=== PATIENT | male | born 1985 | race Caucasian/White ===

== ENCOUNTER 2016-07-07 16:32 | Emergency (ER) | payer OTHER ==
[2016-07-07 19:16] VITALS: BP 122/66
--- NOTE | 2016-07-07 20:01 | RAD ---
HISTORY: Trauma to the fifth digit of the right hand COMPARISONS: None VIEWS: 3, Frontal, lateral, and oblique views of the fifth digit of the right hand FINDINGS: BONE DENSITY: Normal. BONES: There is no displaced fracture. JOINTS: There is no arthropathy. ALIGNMENT: There is no dislocation. SOFT TISSUES: Unremarkable. OTHER FINDINGS: None. IMPRESSION: NO ACUTE OSSEOUS INJURY. IF SYMPTOMS PERSIST, RECOMMEND REPEAT IMAGING.
--- NOTE | 2016-07-07 20:42 | UC ---
Hand/Wrist HPI - HPI Summary HPI Summary: RIGHT FIFTH FINGER INJURY BENT BACKWARDS WHILE PICKING UP TABLE 07/05/16. - History Of Current Complaint Chief Complaint: UCUpperExtremity Stated Complaint: FINGER INJURY Time Seen by Provider: 07/07/16 19:21 Hx Obtained From: Patient Onset/Duration: Sudden Onset, Lasting Days, Still Present Severity Initially: Moderate Severity Currently: Moderate Pain Intensity: 0 Pain Scale Used: Adult Non Verbal Character Of Pain: Spasmodic, Stiffness Aggravating Factor(s): Movement, Flexion, Extension Alleviating: Nothing Associated Signs And Symptoms: Positive: Negative Related History: Dominant Hand Right - Allergies/Home Medications Allergies/Adverse Reactions: Allergies Allergy/AdvReac Type Severity Reaction Status Date / Time No Known Allergies Allergy Verified 07/07/16 19:11 PMH/Surg Hx/FS Hx/Imm Hx Previously Healthy: Yes Endocrine History Of: Denies: Diabetes, Thyroid Disease Cardiovascular History Of: Denies: Cardiac Disorders, Hypertension Respiratory History Of: Denies: COPD, Asthma GI/ History Of: Denies: Ulcer - Surgical History Surgical History: Yes Surgery Procedure, Year, and Place: Hernia repair bilateral at approx 8 years old - Family History Known Family History: Positive: None - Social History Occupation: Employed Full-time Lives: With Family Alcohol Use: Occasionally Substance Use Type: None Smoking Status (MU): Heavy Every Day Tobacco Smoker Type: Cigarettes Amount Used/How Often: 1 ppd Length of Time of Smoking/Using Tobacco: 10+ years Cessation Counseling: Patient Advised to Stop Review of Systems Constitutional: Negative Skin: Negative Eyes: Negative ENT: Negative Respiratory: Negative Cardiovascular: Negative Gastrointestinal: Negative Genitourinary: Negative Motor: Negative Neurovascular: Negative Musculoskeletal: Arthralgia, Myalgia Neurological: Negative Psychological: Negative All Other Systems Reviewed And Are Negative: Yes Physical Exam Triage Information Reviewed: Yes Appearance: Well-Appearing, No Pain Distress, Well-Nourished Vital Signs: Initial Vital Signs Temp 98.6 F 07/07/16 19:13 Pulse 70 07/07/16 19:13 Resp 16 07/07/16 19:13 BP 122/66 07/07/16 19:13 Pulse Ox 98 07/07/16 19:13 Vital Signs Reviewed: Yes Eye Exam: Normal Eyes: Positive: Conjunctiva Clear ENT Exam: Normal ENT: Positive: Normal ENT inspection, Hearing grossly normal, Pharynx normal, TMs normal Dental Exam: Normal Neck exam: Normal Neck: Positive: Supple, Nontender, No Lymphadenopathy Respiratory Exam: Normal Respiratory: Positive: Chest non-tender, Lungs clear, Normal breath sounds, No respiratory distress Cardiovascular Exam: Normal Cardiovascular: Positive: RRR, No Murmur, Pulses Normal Abdominal Exam: Normal Abdomen Description: Positive: Nontender, No Organomegaly Musculoskeletal: Positive: No Edema, Strength Limited @ - RIGHT FIFTH FINGER, ROM Limited @ - RIGHT FIFTH FINGER Neurological Exam: Normal Psychological Exam: Normal Skin Exam: Normal Hand/Wrist Course/Dx - Differential Dx/Diagnosis Differential Diagnosis/HQI/PQRI: Fracture, Sprain, Strain Provider Diagnoses: RIGHT FIFTH FINGER SPRAIN Discharge - Discharge Plan Condition: Stable Disposition: HOME Patient Education Materials: Finger Sprain (ED) Referrals: Shania Izquierdo MD [Primary Care Provider] - Lizzette Madera MD [Medical Doctor] -
== END 2016-07-07 20:25 | disposition home or self-care (01) ==
LOC: UCEAST 16:32
DX: S63.616A Unspecified sprain of right little finger, initial encounter (principal); X50.0XXA Overexertion from strenuous movement or load, initial encounter; Y93.9 Activity, unspecified; Y92.9 Unspecified place or not applicable; F17.210 Nicotine dependence, cigarettes, uncomplicated
CPT/HCPCS: 73140; 99213; G0463

== ENCOUNTER 2017-03-27 09:14 | Emergency (ER) | payer OTHER ==
[2017-03-27 09:24] VITALS: BP 122/78
--- NOTE | 2017-03-27 10:53 | UC ---
Nausea/Vomiting/Diarrhea HPI - HPI Summary HPI Summary: 31 y/o male presents to the Urgent care c/o nausea , diarrhea and chills since 03/25/2017. Pt reports He had multiple episodes of Diarrhea, but has resolved by now. However he feels very week with a mild headache. Pt denies fever, SOB, abdominal pain, chest pain, dizziness, N/V, recent travelled or eating outside before symptoms started. Pt requests a note for work. - History of Current Complaint Chief Complaint: UCGeneralIllness Stated Complaint: NAUSEA CHILLS Time Seen by Provider: 03/27/17 10:34 Hx Obtained From: Patient Onset/Duration: Gradual Onset, Lasting Days - 3 days, Resolved Timing: Intermittent Episodes Lasting: - seconds Severity Initially: Moderate Severity Currently: Mild Pain Intensity: 0 Pain Scale Used: 0-10 Numeric Location: Diffuse Character: Colicy Aggravating Factor(s): Nothing Alleviating Factor(s): Spontaneous Resolution Nausea/Vomiting Presence: None Diarrhea Presence: Yes - but resolve by now Diarrhea Duration: 2-3 days Diarrhea Characteristics: Watery, Malodorous - Risk Factors Influenza Risk Factors: Negative Surgical Obstruction Risk Factor(s): Negative - Allergies/Home Medications Allergies/Adverse Reactions: Allergies Allergy/AdvReac Type Severity Reaction Status Date / Time No Known Allergies Allergy Verified 03/27/17 09:19 PMH/Surg Hx/FS Hx/Imm Hx Previously Healthy: Yes - Pt denies PMHX - Surgical History Surgical History: Yes Surgery Procedure, Year, and Place: Hernia repair bilateral at approx 8 years old - Family History Known Family History: Positive: Hypertension, Diabetes - Social History Occupation: Employed Full-time Lives: With Family Alcohol Use: Occasionally Substance Use Type: None Smoking Status (MU): Heavy Every Day Tobacco Smoker Type: Cigarettes Amount Used/How Often: 1 ppd Length of Time of Smoking/Using Tobacco: 10+ years Review of Systems Constitutional: Fatigue Skin: Negative Eyes: Negative ENT: Negative Respiratory: Negative Cardiovascular: Negative Gastrointestinal: Diarrhea Genitourinary: Negative Motor: Negative Neurovascular: Negative Musculoskeletal: Negative Neurological: Headache Is Patient Immunocompromised?: No All Other Systems Reviewed And Are Negative: Yes Physical Exam Triage Information Reviewed: Yes Vital Signs: Initial Vital Signs Temp 99 F 03/27/17 09:22 Pulse 83 03/27/17 09:22 Resp 18 03/27/17 09:22 BP 122/78 12/15/17 09:22 Pulse Ox 100 03/27/17 09:22 - Additional Comments Vital Signs Reviewed: Yes General:Patient is a well developed and nourished male who is sitting comfortable in the examining table. Patient is not in any acute respiratory distress. Eyes: Positive: Conjunctiva Clear - PERRLA, EOMI, fundi grossly normal ENT: Positive: Normal ENT inspection, Hearing grossly normal, Pharynx normal, TMs normal Neck: Positive: Supple, Nontender, No Lymphadenopathy Respiratory: Positive: Chest non-tender, Lungs clear, Normal breath sounds, No respiratory distress Cardiovascular: Positive: RRR,S1 and S2 present, No Murmur, Pulses Normal, Brisk Capillary Refill Abdomen Description: Positive: Nontender, Other: - Abd: Flat with no distention. No surface trauma, scars, incisions. hyperactive bowel sounds present in all four quadrants. No tenderness, guarding, rigidity to palpation. No masses palpated, no pulsation in epigastric area. No organomegaly. Negative [place] signs. No periumbilical tenderness. No rebound in the lower quadrants. NT over [place]neys point. Good femoral pulses bilaterally. No hernia noted. No CVAT bilaterally Musculoskeletal: Positive: Strength Intact, ROM Intact, No Edema,FROM in all major joints, no edema, no cyanosis or clubbing. Neuro: Alert and oriented x 3. No acute neurological deficits. Speech is normal. Psycological: WNL Skin: Dry and warm Naus/Vom/Diarrhea Course/Dx - Course Course Of Treatment: 31 y/o male presents to the Urgent care c/o nausea , diarrhea and chills since 03/25/2017. Pt reports He had multiple episodes of Diarrhea, but has resolved by now. However he feels very week with a mild headache. Pt denies fever, SOB, abdominal pain, chest pain, dizziness, N/V, recent travelled or eating outside before symptoms started. Pt requests a note for work.Hx obatined. PE : WNL Pt with possibly a Viral gastroenteririts which is resolving by now. Also B/L exteranl ear canal with cerument impaction. Pt offered ear irrigation and he declined, he prefers Rx. Debrox Rx and excuse for work given. advised to increase fluid intake, eat soft meals, rest. However if symptoms worsen and abdominal pain develops to go Immediately to the ER for further management. Pt explained D/C instructions. Pt understood and agreed w/ plan of care. Pt left the clinic ambulating, A&OX3 - Differential Dx/Diagnosis Differential Diagnoses - Male: Appendicitis, Gerd, Gastroenteritis (Viral), Gastroenteritis (Bacterial), Diarrhea, Colitis, Gastritis Provider Diagnoses: 1- viral gastroenteritis. 2-B/l external ear canal with cerumen impaction Condition At Discharge: Stable Discharge - Discharge Plan Condition: Stable Disposition: HOME Prescriptions: Carbamide Peroxide 6.5% OTIC* [DEBROX 6.5% Otic*] 5 drop BOTH EARS BID #1 bottle Patient Education Materials: Cerumen Impaction (ED), Gastroenteritis (ED) Forms: *Work Release Referrals: Perry Carrero, [facility]ER [Primary Care Provider] - 3 Days Additional Instructions: 1- Please increase fluid intake with Gatorade or Pedialyte OTC. eat soft meals and rest. 2- Use the Debrox on both external ear canals to soften the cerumen. 3- If you develops fever or abdominal pain w/ recurrent episodes of diarrhea please go the ER, otherwise f/u with your PCP if diarrhea not resolving in 2-3 days
== END 2017-03-27 11:00 | disposition home or self-care (01) ==
LOC: UCEAST 09:14
DX: A08.4 Viral intestinal infection, unspecified (principal); H61.23 Impacted cerumen, bilateral; Z72.89 Other problems related to lifestyle; Z72.0 Tobacco use
CPT/HCPCS: 99212; G0463

== ENCOUNTER 2017-06-25 13:11 | Emergency (ER) | payer OTHER ==
[2017-06-25 13:29] VITALS: BP 140/77
--- NOTE | 2017-06-25 13:57 | UC ---
General HPI - HPI Summary HPI Summary: 31 yo WM c/o B/L cerumen impaction x 2-3 weeks, his friend have been telling him he cannot hear as well as he normally does. He is opposed to "sticking anything in there to get it out". Denies pain, f/c/dizziness or URI sx - History of Current Complaint Chief Complaint: UCEar Stated Complaint: EARS PLUGGED Time Seen by Provider: 06/25/17 13:45 Hx Obtained From: Patient Onset/Duration: Lasting Days, Lasting Weeks, Still Present Onset Severity: Moderate Current Severity: Moderate Pain Intensity: 0 - Allergy/Home Medications Allergies/Adverse Reactions: Allergies Allergy/AdvReac Type Severity Reaction Status Date / Time No Known Allergies Allergy Verified 06/25/17 13:21 PMH/Surg Hx/FS Hx/Imm Hx Previously Healthy: Yes - Surgical History Surgical History: Yes Surgery Procedure, Year, and Place: Hernia repair bilateral at approx 8 years old - Family History Known Family History: Positive: None, Hypertension, Diabetes - Social History Alcohol Use: Occasionally Substance Use Type: None Smoking Status (MU): Heavy Every Day Tobacco Smoker Type: Cigarettes Amount Used/How Often: 1 ppd Length of Time of Smoking/Using Tobacco: 10+ years Review of Systems Constitutional: Negative Skin: Negative Eyes: Negative ENT: Other - decreased hearing-mild due to ear wax Respiratory: Negative Cardiovascular: Negative Gastrointestinal: Negative Genitourinary: Negative Motor: Negative Neurovascular: Negative Musculoskeletal: Negative Neurological: Negative Psychological: Negative All Other Systems Reviewed And Are Negative: Yes Physical Exam Triage Information Reviewed: Yes Appearance: Well-Appearing Vital Signs: Initial Vital Signs Temp 37.0 C 06/25/17 13:22 Pulse 107 06/25/17 13:22 Resp 18 06/25/17 13:22 BP 140/77 06/25/17 13:22 Pulse Ox 98 06/25/17 13:22 Vital Signs Reviewed: Yes Eye Exam: Normal ENT: Positive: Other - B/L cerumen impaction Dental Exam: Normal Neck exam: Normal Neck: Positive: 1 Respiratory Exam: Normal Cardiovascular Exam: Normal Abdominal Exam: Normal Musculoskeletal Exam: Normal Neurological Exam: Normal Psychological Exam: Normal Skin Exam: Normal Course/Dx - Course Course Of Treatment: After soaking with peroxide and saline irrgation, B/L ext ear canal well visualized and hearing improved - Differential Dx - Multi-Symptom Provider Diagnoses: Cerumen impaction Discharge - Discharge Plan Condition: Stable Disposition: HOME Patient Education Materials: Cerumen Impaction (ED) Referrals: No Primary Care Phys,NOPCP [Primary Care Provider] - Additional Instructions: clean your ears periodically with ear curette between irrigations
== END 2017-06-25 14:49 | disposition home or self-care (01) ==
LOC: UCEAST 13:11
DX: H61.23 Impacted cerumen, bilateral (principal); F17.210 Nicotine dependence, cigarettes, uncomplicated
CPT/HCPCS: 99213; G0463

== ENCOUNTER → 2017-07-27 12:30 | Emergency (ER) | payer OTHER ==
--- NOTE | 2017-07-27 12:54 | UC ---
Ear Complaint HPI - HPI Summary HPI Summary: 31 y/o male presents to the urgent care c/o left ear pain w/ pressure for the past 2 days. Pain is 5/10 associated w/ mild NAZARIO. Pt has been taking 2 tabs PO of Ibuprofen to alleviate symptoms. Pt denies fever, decrease hearing, dizziness, SOB, chest pain, abdominal pain, N/V/D. - History of Current Complaint Stated Complaint: EAR PAIN Time Seen by Provider: 07/27/17 12:51 Hx Obtained From: Patient Onset/Duration: Gradual Onset, Lasting Days - 2 days, Still Present, Worse Since - today Severity Initially: Mild Severity Currently: Moderate Pain Intensity: 5 Pain Scale Used: 0-10 Numeric Aggravating Factors: Other - touch Alleviating Factors: OTC Meds Associated Signs/Symptoms: Positive: URI Symptoms - Allergies/Home Medications Allergies/Adverse Reactions: Allergies Allergy/AdvReac Type Severity Reaction Status Date / Time No Known Allergies Allergy Verified 07/27/17 12:51 PMH/Surg Hx/FS Hx/Imm Hx Previously Healthy: Yes - Pt denies PMHX - Surgical History Surgical History: Yes Surgery Procedure, Year, and Place: Hernia repair bilateral at approx 8 years old - Family History Known Family History: Positive: None, Hypertension, Diabetes - Social History Occupation: Employed Full-time Lives: With Family Alcohol Use: Occasionally Substance Use Type: None Smoking Status (MU): Heavy Every Day Tobacco Smoker Type: Cigarettes Amount Used/How Often: 1 ppd Length of Time of Smoking/Using Tobacco: 10+ years Review of Systems Constitutional: Negative Skin: Negative Eyes: Negative ENT: Ear Ache - left ear pain and pressure, Nasal Discharge - mild w/ clear nasal discharge Respiratory: Negative Cardiovascular: Negative Gastrointestinal: Negative Genitourinary: Negative Motor: Negative Neurovascular: Negative Musculoskeletal: Negative Neurological: Headache Psychological: Negative Is Patient Immunocompromised?: No All Other Systems Reviewed And Are Negative: Yes Physical Exam - Summary Physical Exam Summary: Vital signs: reviewed General: well developed, well nourished male sitting in the examining table w/o any apparent distress Skin: [place], warm and dry, HEENT: -Head: atraumatic, non tender; no scalp dermatitis. -Eyes: sclera and conjunctiva clear, PERRLA, EOMI -Ears: no pre- or postauricular lymphadenopathy or erythema; LF external ear canal with erythema and mild yellowish ear discharge, pinna tenderness on palpation, Rt TM WNL, RT external ear canal clear and RTTM WNL. TMs normal w/ out bulging or retraction. Good light reflex. No fluid level, vesicles, or bullae. No perforation. -Nose/Face: erythematous and edematous nasal mucosa with clear rhinorrhea, no frontal or maxillary sinus tender to palpation. -Mouth/Throat: Mucous membrane moist, posterior pharynx clear, no erythema or exudates. Neck: supple, FROM, nontender, no lymphadenopathy, no meningismus. Chest: Clear to auscultation, normal breath sounds Abd: soft, Bowel sounds active, Nontender. Back: no spinal or CVAT Neuro: A&O x4, GCS 15, no focal neuro deficits, normal behavior for age. Triage Information Reviewed: Yes Ear Complaint Course/Dx - Course Course Of Treatment: 31 y/o male presents to the urgent care c/o left ear pain w / pressure for the past 2 days. Pain is 5/10 associated w/ mild NAZARIO. Pt has been taking 2 tabs PO of Ibuprofen to alleviate symptoms. Pt denies fever, dizziness, SOB, chest pain, abdominal pain, N/V/D.Hx obtained. Pt w/ Lf otitis externa on examination. Pt Rx Cortisporin otic drops. Advised to continue taking ibuprofen PO OTC for pain. If symptoms do not improve or worsen to return to the urgent care or f/u with PCP for further management. Pt understood and agreed with D/C instructions. - Differential Dx/Diagnosis Differential Diagnosis/HQI/PQRI: Barotrauma, Cerumen Impaction, Otitis Externa, Otitis Media, Perforated TM Provider Diagnoses: 1- Acute left otitis externa. 2- Otalgia Discharge - Sign-Out/Discharge Documenting (check all that apply): Discharge - Discharge Plan Condition: Stable Disposition: HOME Prescriptions: Neomyc/Polym/HC 1% OTIC SUSP* [Cortisporin Otic Susp 1%*] 4 drop LEFT EAR QID # 1 btl Patient Education Materials: Otitis Externa (ED) Forms: *Work Release Referrals: [facility] [Outside] - If Needed Additional Instructions: 1-Please apply otic antibiotic on your LF ear as directed. 2-Continue taking ibuprofen PO after meals for pain. 3-If symptoms do not improve or worsen please f/u with your PCP or return to the urgent care for further evaluation and treatment. - Billing Disposition and Condition Condition: STABLE Disposition: HOME
[2017-07-27 12:58] VITALS: BP 135/86
== END | disposition home or self-care (01) ==
LOC: UCEAST 12:30
DX: H60.502 Unspecified acute noninfective otitis externa, left ear (principal); H92.02 Otalgia, left ear; F17.210 Nicotine dependence, cigarettes, uncomplicated
CPT/HCPCS: 99212; G0463

== ENCOUNTER 2018-07-16 07:31 | Emergency (ER) | payer OTHER ==
--- OUTSIDE RECORDS SUMMARY | 2018-07-16 07:38 | XMS REPORT | Continuity of Care Document ---
:1985 External Reference #:[id number] Nicole Care Team Providers Name Role Phone Mick Winter MD Primary Care Physician Unavailable Payers Date Identification Numbers Payment Provider Subscriber Policy Number: [id number] Javier Mendez Group Name: [id number] [address] PayID: [id number] [place] [address] Advance Directives Description No Information Available Problems Date Description Provider Status Onset: 06/08/2015 Anxiety Tyshawn Izquierdo M.D. 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 Cigarette Use Pack Years - 13 ETOH Use 08/18/2017 Occasionally consumes alcohol Recreational Drug Use MJ Tobacco Use Start: Unknown Patient is a current Started age 18; smoker, smokes every smokes 1/2-1ppd day Smoking Status Reviewed: 07/14/18 Patient is a current Started age 18; smoker, smokes every smokes 1/2-1ppd day Exercise Type/Frequency 4 children, hiking etc Allergies, Adverse Reactions, Alerts Description No Known Drug Allergies Medications Medication Date Status Form Strength Qnty SIG Indications Ordering Provider Nicorette Active Gum 4mg 220unit 1 piece F17.210 Diane 019 s of gum Varn, N.P. every 2 - 4 hours. Not more than 24 per day Ranitidine HCL Active Tablets 150mg 60tabs take one R10.13 Diane 019 tablet by Ne, N.P. mouth twice a day Procto-Med HC Active Cream 2.5% 30gm by way of Mick Aguilar rectum Jordan Winter, every day M.DJonathan,FACP as needed Clotrimazole Active Cream 1% 30gm topical Mick Aguilar every day Jordan Winter, as needed M.D.,FACP Multi Complete Active Capsules daily Unknown 000 Ginseng Active Capsules 50mg 1 by Unknown 000 mouth every day Ibuprofen Active Tablets 200mg as needed Unknown 000 Vitamin D3 Active Chewtabs 1000Unit 1 by Unknown Adult Gummies 000 mouth every day Sertraline HCL Hx Tablets 50mg 30tabs 1 Tab F32.8 Tyshawn 016 - Oral [place], Daily MDonna 016 Immunizations Description No Information Available Vital Signs Date Vital Result Comment 07/14/2018 3:19pm Height 69 inches 5'9" Weight 206.50 lb Heart Rate 102 /min BP Systolic Sitting 125 mmHg BP Diastolic Sitting 80 mmHg Body Temperature 98.5 F O2 % BldC Oximetry 96 % BMI (Body Mass Index) 30.5 kg/m2 06/24/2018 10:39am Height 69 inches 5'9" Weight 212.00 lb Heart Rate 93 /min BP Systolic 136 mmHg BP Diastolic 76 mmHg Body Temperature 98.3 F O2 % BldC Oximetry 97 % BMI (Body Mass Index) 31.3 kg/m2 08/21/2017 2:15pm Heart Rate 90 /min BP Systolic Sitting 138 mmHg BP Diastolic Sitting 80 mmHg Respiratory Rate 18 /min Body Temperature 99.0 F 08/18/2017 3:51pm Height 69 inches 5'9" Weight 200.00 lb Heart Rate 95 /min BP Systolic Sitting 104 mmHg BP Diastolic Sitting 70 mmHg Body Temperature 98.0 F O2 % BldC Oximetry 96 % BMI (Body Mass Index) 29.5 kg/m2 12/10/2016 4:07pm Weight 243.00 lb Heart Rate 102 /min BP Systolic Sitting 116 mmHg BP Diastolic Sitting 82 mmHg O2 % BldC Oximetry 96 % 11/23/2015 7:56am Weight 224.75 lb Heart Rate 87 /min BP Systolic Sitting 125 mmHg BP Diastolic Sitting 88 mmHg Body Temperature 98.5 F O2 % BldC Oximetry 97 % 08/17/2015 8:40am Height 69 inches 5'9" Weight 229.00 lb Heart Rate 76 /min BP Systolic Sitting 122 mmHg BP Diastolic Sitting 82 mmHg Body Temperature 97.6 F O2 % BldC Oximetry 98 % BMI (Body Mass Index) 33.8 kg/m2 07/13/2015 7:57am Height 69 inches 5'9" Weight 233.75 lb Heart Rate 102 /min BP Systolic Sitting 124 mmHg BP Diastolic Sitting 84 mmHg Body Temperature 98.7 F O2 % BldC Oximetry 98 % BMI (Body Mass Index) 34.5 kg/m2 06/13/2015 10:36am Height 69 inches 5'9" Weight 239.00 lb Heart Rate 88 /min BP Systolic Sitting 128 mmHg BP Diastolic Sitting 80 mmHg Respiratory Rate 14 /min Body Temperature 15.0 F O2 % BldC Oximetry 98 % BMI (Body Mass Index) 35.3 kg/m2 06/08/2015 11:10am Height 69 inches 5'9" Weight 240.75 lb Heart Rate 95 /min BP Systolic Sitting 140 mmHg BP Diastolic Sitting 93 mmHg Body Temperature 98.2 F O2 % BldC Oximetry 96 % BMI (Body Mass Index) 35.5 kg/m2 Results Test Date Facility Test Result H/L Range Note CBC Auto Diff 06/24/2018 [facility] White Blood 8.3 10^3/uL N 3.5-10.[address] [place] [address] [phone] Red Blood Count 5.13 10^6/uL N 4.18-5.48 Hemoglobin 15.5 g/dL N 14.0-18.0 Hematocrit 45 % N 36-46 Mean Corpuscular Volume 88 fL N 80-94 Mean Corpuscular Hemoglobin 30 pg N 27-31 Mean Corpuscular HGB Conc 34 g/dL N 31-36 Red Cell Distribution Width 13 % N 10.5-15 Platelet Count 184 10^3/uL N 150-450 Mean Platelet Volume 8.4 fL N 7.4-10.4 Abs Neutrophils 6.3 10^3/uL N 1.5-7.7 Abs Lymphocytes 1.3 10^3/uL N 1.0-4.8 Abs Monocytes 0.5 10^3/uL N 0-0.8 Abs Eosinophils 0.1 10^3/uL N 0-0.6 Abs Basophils 0.1 10^3/uL N 0-0.2 Abs Nucleated RBC 0 10^3/uL Granulocyte % 76.3 % Lymphocyte % 15.7 % Monocyte % 6.6 % Eosinophil % 0.7 % Basophil % 0.7 % Nucleated Red Blood Cells % 0 Comp Metabolic Panel 06/24/2018 [facility] Sodium 140 mmol/L N 135-[address] [place] [address] [phone] Potassium 3.9 mmol/L N 3.5-5.0 Chloride 106 mmol/L N 101-111 Co2 Carbon Dioxide 25 mmol/L N 22-32 Anion Gap 9 mmol/L N 2-11 Glucose 109 mg/dL High 70-100 Blood Urea Nitrogen 20 mg/dL N 6-24 Creatinine 0.90 mg/dL N 0.67-1.17 BUN/Creatinine Ratio 22.2 High 8-20 Calcium 9.2 mg/dL N 8.6-10.3 Total Protein 6.3 g/dL Low 6.4-8.9 Albumin 4.5 g/dL N 3.2-5.2 Globulin 1.8 g/dL Low 2-4 Albumin/Globulin Ratio 2.5 N 1-3 Total Bilirubin 0.40 mg/dL N 0.2-1.0 Alkaline Phosphatase 56 U/L N 34-104 Alt 14 U/L N 7-52 Ast 11 U/L Low 13-39 Egfr Non- 96.6 >60 Egfr 116.9 >60 1 Laboratory test 06/24/2018 [facility] TSH (Thyroid 0.53 mcIU/mL N 0.34-5.[address] Stim Horm) [place] [address] [phone] CBC Auto Diff 08/18/2017 [facility] White Blood 7.4 10^3/uL N 3.5-10.[address] [place] [address] [phone] Red Blood Count 5.35 10^6/uL N 4.0-5.4 Hemoglobin 16.2 g/dL N 14.0-18.0 Hematocrit 47 % N 42-52 Mean Corpuscular Volume 87 fL N 80-94 Mean Corpuscular Hemoglobin 30 pg N 27-31 Mean Corpuscular HGB Conc 35 g/dL N 31-36 Red Cell Distribution Width 13 % N 10.5-15 Platelet Count 220 10^3/uL N 150-450 Mean Platelet Volume 8.8 um3 N 7.4-10.4 Abs Neutrophils 4.8 10^3/uL N 1.5-7.7 Abs Lymphocytes 2.0 10^3/uL N 1.0-4.8 Abs Monocytes 0.5 10^3/uL N 0-0.8 Abs Eosinophils 0.1 10^3/uL N 0-0.6 Abs Basophils 0.1 10^3/uL N 0-0.2 Abs Nucleated RBC 0 10^3/uL Granulocyte % 64.1 % N 38-83 Lymphocyte % 26.7 % N 25-47 Monocyte % 7.4 % High 0-7 Eosinophil % 1.0 % N 0-6 Basophil % 0.8 % N 0-2 Nucleated Red Blood Cells % 0 Laboratory test 08/18/2017 [facility] TSH (Thyroid 1.01 mcIU/mL N 0.34-5.[address] Stim Horm) [place] [address] [phone] Comp Metabolic 08/18/2017 [facility] Sodium 139 mmol/L N 139- [address] [place] [address] [phone] Potassium 4.4 mmol/L N 3.5-5.0 Chloride 102 mmol/L N 101-111 Co2 Carbon Dioxide 27 mmol/L N 22-32 Anion Gap 10 mmol/L N 2-11 Glucose 81 mg/dL N 70-100 Blood Urea Nitrogen 16 mg/dL N 6-24 Creatinine 0.95 mg/dL N 0.67-1.17 BUN/Creatinine Ratio 16.8 N 8-20 Calcium 9.4 mg/dL N 8.6-10.3 Total Protein 6.9 g/dL N 6.4-8.9 Albumin 4.9 g/dL N 3.2-5.2 Globulin 2.0 g/dL N 2-4 Albumin/Globulin Ratio 2.5 N 1-3 Total Bilirubin 0.60 mg/dL N 0.2-1.0 Alkaline Phosphatase 50 U/L N 34-104 Alt 13 U/L N 7-52 Ast 11 U/L Low 13-39 Egfr Non- 91.3 >60 Egfr 117.4 >60 2 Lipid Profile 12/13/2016 [facility] Triglycerides 101 mg/dL N 3 (Trig/Chol/HDL) [address] [place] [address] [phone] Cholesterol 163 mg/dL N 4 HDL Cholesterol 46.9 mg/dL N 5 LDL Cholesterol 96 mg/dL N 6 Laboratory test 12/13/2016 [facility] Glucose 101 mg/dL High 70-100 [address] [place] [address] [phone] Laboratory test 07/13/2015 [facility] Hemoglobin A1c 5.2 5-7 finding Laboratory test 06/13/2015 [facility] C Difficile PCR SEE RESULT [address] [place] [address] [phone] Comp Metabolic 06/08/2015 [facility] Sodium 136 mmol/L N 133- [address] [place] [address] [phone] Potassium 4.1 mmol/L N 3.5-5.0 Chloride 102 mmol/L N 101-111 Co2 Carbon Dioxide 28 mmol/L N 22-32 Anion Gap 6 mmol/L N 2-11 Glucose 93 mg/dL N 70-100 Blood Urea Nitrogen 22 mg/dL N 6-24 Creatinine 0.93 mg/dL N 0.67-1.17 BUN/Creatinine Ratio 23.7 High 8-20 Calcium 9.5 mg/dL N 8.6-10.3 Total Protein 6.9 g/dL N 6.4-8.9 Albumin 4.7 g/dL N 3.2-5.2 Globulin 2.2 g/dL N 2-4 Albumin/Globulin Ratio 2.1 N 1-3 Total Bilirubin 0.50 mg/dL N 0.2-1.0 Alkaline Phosphatase 53 U/L N 34-104 Alt 19 U/L N 7-52 Ast 13 U/L N 13-39 Egfr Non- 94.8 N >60 Egfr 121.9 N >60 9 Laboratory test 06/08/2015 [facility] TSH (Thyroid 1.11 ?IU/mL N 0.34-5.[address] Stim Horm) [place] [address] [phone] CBC Auto Diff 06/08/2015 [facility] White Blood 7.3 10^3/uL N 3.5-10.[address] [place] [address] [phone] Red Blood Count 5.44 10^6/uL High 4.0-5.4 Hemoglobin 16.2 g/dL N 14.0-18.0 Hematocrit 47 % N 42-52 Mean Corpuscular Volume 87 fL N 80-94 Mean Corpuscular Hemoglobin 30 pg N 27-31 Mean Corpuscular HGB Conc 34 g/dL N 31-36 Red Cell Distribution Width 13 % N 10.5-15 Platelet Count 190 10^3/uL N 150-450 Mean Platelet Volume 8 um3 N 7.4-10.4 Abs Neutrophils 5.0 10^3/uL N 1.5-7.7 Abs Lymphocytes 1.6 10^3/uL N 1.0-4.8 Abs Monocytes 0.5 10^3/uL N 0-0.8 Abs Eosinophils 0.1 10^3/uL N 0-0.6 Abs Basophils 0.1 10^3/uL N 0-0.2 Abs Nucleated RBC 0.01 10^3/uL N Granulocyte % 69.2 % N 38-83 Lymphocyte % 21.5 % Low 25-47 Monocyte % 7.3 % N 1-9 Eosinophil % 1.2 % N 0-6 Basophil % 0.8 % N 0-2 Nucleated Red Blood Cells % 0.1 N 1 Because ethnic data is not always readily available, this report includes an eGFR for both -Americans and non- Americans. The National Kidney Disease Education Program (NKDEP) does not endorse the use of the MDRD equation for patients that are not between the ages of 18 and 70, are , have extremes of body size, muscle mass, or nutritional status, or are non- or non-. According to the National Kidney Foundation, irrespective of diagnosis, the stage of the disease is based on the level of kidney function: Stage Description GFR(mL/min/1.73 m(2)) 1 Kidney damage with normal or decreased GFR 90 2 Kidney damage with mild decrease in GFR 60-89 3 Moderate decrease in GFR 30-59 4 Severe decrease in GFR 15-29 5 Kidney failure <15 (or dialysis) 2 Because ethnic data is not always readily available, this report includes an eGFR for both -Americans and non- Americans. The National Kidney Disease Education Program (NKDEP) does not endorse the use of the MDRD equation for patients that are not between the ages of 18 and 70, are , have extremes of body size, muscle mass, or nutritional status, or are non- or non-. According to the National Kidney Foundation, irrespective of diagnosis, the stage of the disease is based on the level of kidney function: Stage Description GFR(mL/min/1.73 m(2)) 1 Kidney damage with normal or decreased GFR 90 2 Kidney damage with mild decrease in GFR 60-89 3 Moderate decrease in GFR 30-59 4 Severe decrease in GFR 15-29 5 Kidney failure <15 (or dialysis) 3 Desirable <150 Borderline high 150-199 High 200-499 Very High >500 4 Desirable <200 Borderline high 200-239 High >239 5 Low <40 Desirable: 40-60 High: >60 6 Desirable: <100 mg/dL Near Optimal: 100-129 mg/dL Borderline High: 130-159 mg/dL High: 160-189 mg/dL Very High: >189 mg/dL 7 FASTING 10 HOUR 8 SEE RESULT BELOW Name: ALLYSON MENDEZ : [address]: Perry Carrero NP Acct: [id number] Unit: [id number] AGE: 29 Location: [facility] Re06/13/15 SEX: M Status: REG REF SPEC: [id number] ALEJANDRA: 06/13/15-[address]: Perry Carrero [employer] REQ: [id number] RECD: 06/14/15 STATUS: COMP _ SOURCE: STOOL SPDESC: ORDERED: C. diff PCR, Stool Culture, O P: Giar/Crypt COMMENTS: C. Difficile toxin testing is not performed on formed stool specimens. Test of cure on positive patients is not recommended. Verbal to WADE SIMMONS by [id number] at 1328 on 06/14/15. Results read back accurately. Procedure Result Reported Site Stool Culture Final 06/17/15- 1050 ML Result No enteric pathogens isolated Testing for Salmonella, Shigella, Aeromonas, Plesiomonas, Yersinia and Campylobacter are included in a Stool Culture. Vibrio spp not routinely tested for in a stool culture. If testing is desired, please request specifically when placing test order. Sensitivities not routinely performed on stool isolates, as antibiotics may prolong the carriage rate of bacteria. Please contact the microbiology lab if sensitivities are required. Stool Specimen Description Final 06/14/15- 1224 ML Stool Color Brown Stool Form Formed Stool Consistency Firm Shiga Toxin 1 2 Final 06/15/15- 0930 ML Organism 1 Negative Shiga Toxin 1 2 CONTINUED ON NEXT PAGE * ML=Testing performed at Main Lab DEPARTMENT OF PATHOLOGY, [address] [place] [address] Addison Parikh M.D. Director [facility] # [id number] Patient: ALLYSON MENDEZ [id number] (Continued) Specimen: [id number] Collected: 06/13/15 Received: 06/14/15-9 (Continued) Procedure Result Reported Site Shiga Toxin 1 2 Final (continued) 06/15/15- 0930 Immunochromatographic Assay C. difficile PCR Final 06/14/15- 1223 ML Test not performed O P: Giardia/Cryptospor Screen Final 06/14/15- 1501 ML Organism 1 Neg Cryptosporidium/Giardia Giardia and cryptosporidium antigen testing performed by enzyme immunoassay. If patient is immunocompromised or has traveled to or is from a developing country, a full ova and parasite exam with microscopic (OPMIC) is recommended. All samples will be held one month in case full ova and parasite testing is requested. Contact the Microbiology Department at [phone]. TEST LIMITATIONS: As with all diagnostic procedures, the results obtained should be used in conjunction with other clinical information available the physician, including confirmation by another method. Negative results can occur in samples containing antigen below lower limits of detection of the assay. One negative specimen does not rule out the possibility of a parasitic infection. To improve detection it is recommended that three specimens be collected on separate days over a period of not more than seven days. The use of colonic washes, aspirates or other diluted sample types has not been established and could affect the performance of the assay. Stool samples contaminated with an oily or particulate base (eg. Barium, mineral oil etc.) could interfere with the test and are not recommended. * ML - MAIN LAB ([facility]) . END OF REPORT * ML=Testing performed at Main Lab DEPARTMENT OF PATHOLOGY, [address] [place] [address] Addison Parikh M.D. Director [facility] # [id number] 9 Because ethnic data is not always readily available, this report includes an eGFR for both -Americans and non- Americans. The National Kidney Disease Education Program (NKDEP) does not endorse the use of the MDRD equation for patients that are not between the ages of 18 and 70, are , have extremes of body size, muscle mass, or nutritional status, or are non- or non-. According to the National Kidney Foundation, irrespective of diagnosis, the stage of the disease is based on the level of kidney function: Stage Description GFR(mL/min/1.73 m(2)) 1 Kidney damage with normal or decreased GFR 90 2 Kidney damage with mild decrease in GFR 60-89 3 Moderate decrease in GFR 30-59 4 Severe decrease in GFR 15-29 5 Kidney failure <15 (or dialysis) Procedures Date Code Description Status 07/07/2018 25590 Stress Test Completed 07/07/2018 56962 Stress Test Completed 06/24/2018 63807 EKG Tracing & Interpretation Completed 08/21/2017 70716 Anoscopy Completed 06/13/2015 19095 EKG Tracing & Interpretation Completed Encounters Type Date Location Provider Dx Diagnosis Office Visit 06/24/2018 [facility] Diane Olivia, R06.02 Shortness of 10:40a Medicine N.P. breath R07.9 Chest pain, unspecified M77.12 Lateral epicondylitis, left elbow M25.522 Pain in left elbow Office Visit 08/21/2017 2:15p Surgical Kalyan Szymanski K60.2 Anal fissure[facility] Marisol unspecified [facility] Office Visit 08/18/2017 3:40p [facility] Mick Ortega R63.4 Abnormal weight Medicine Kiersten Winter,FACP loss K64.1 Second degree hemorrhoids Office Visit 12/10/2016 4:00p [facility] Perry Carrero Z13.220 Encounter for Medicine [employer] screening for lipoid disorders Z13.1 Encounter for screening for diabetes mellitus F17.210 Nicotine dependence, cigarettes, uncomplicated Office Visit 11/23/2015 8:00a [facility] Tyshawn M25.569 Pain in Medicine Kiersten Izquierdo unspecified knee F32.8 Other depressive episodes K52.9 Noninfective gastroenteritis and colitis, unspecified Office Visit 08/17/2015 8:40a [facility] Tyshawn Izquierdo F32.8 Other depressive Medicine Kiersten episodes M25.569 Pain in unspecified knee Office Visit 07/13/2015 8:00a [facility] Tyshawn K92.2 Gastrointestinal Medicine Kiersten Izquierdo hemorrhage, unspecified F32.8 Other depressive episodes M25.569 Pain in unspecified knee L83 Acanthosis nigricans Office Visit 06/13/2015 10:20a [facility] Perry Carrero, JUANJOSE R42 Dizziness and Medicine giddiness R19.7 Diarrhea, unspecified R07.89 Other chest pain R06.02 Shortness of breath Office Visit 06/08/2015 11:00a [facility] Tyshawn Izquierdo, R42 Dizziness and Medicine Kiersten giddiness K62.5 Hemorrhage of anus and rectum F17.210 Nicotine dependence, cigarettes, uncomplicated Plan of Treatment 07/14/2018 - Diane Olivia N.P.F17.210 Nicotine dependence, cigarettes, uncomplicatedNew Medication:Nicorette 4 mg - 1 piece of gum every 2 - 4 hours. Not more than 24 per dayComments:I urge you to continue your efforts to quit smoking. I have sent a prescription in for Nicorette gum. You may chew 1 piece every 2 - 4 hours, not to exceed 24 pieces in 24 hours. Be sure to tuck this in your cheek.F41.1 Generalized anxiety disorderComments:For your anxiety I suggest you try using CBD oil.R10.13 Epigastric painNew Medication:Ranitidine HCL 150 mg - take one tablet by mouth twice a dayComments:To help your stomach/ chest pain I have prescribed Ranitidine 150 mg. Take 1 twice daily as needed for this.I suggest you avoid food triggers:Coffee, alcohol, spicy, greasy, and fatty foods.
--- OUTSIDE RECORDS SUMMARY | 2018-07-16 07:38 | XMS REPORT | Continuity of Care Document ---
:1985 External Reference #:[id number] Author Name Preethi Ponce Care Team Providers Name Role Phone Mick Winter MD Primary Care Physician Unavailable Payers Date Identification Numbers Payment Provider Subscriber Policy Number: [id number] Javier Mendez Group Name: [id number] [address] PayID: [id number] [place] [address] Advance Directives Description No Information Available Problems Date Description Provider Status Onset: 06/08/2015 Anxiety Tyshawn Izquierdo M.D. 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 Active Onset: 08/18/2017 Body mass index 25-29 - Mick Winter M.D.,XIAO Active overweight Family History Date Family Member(s) [...] every smokes 1/2-1ppd day Smoking Status Reviewed: 06/24/18 Patient is a current Started age 18; smoker, smokes every smokes 1/2-1ppd day Exercise Type/Frequency 4 children, hiking etc Allergies, Adverse Reactions, Alerts Description No Known Drug Allergies Medications Medication Date Status Form Strength Qnty SIG Indications Ordering Provider Procto-Med HC Active Cream 2.5% 30gm by way of Mick Winter every day KierstenFACP as needed Clotrimazole Active Cream 1% 30gm topical Mick Aguilar every day Jordan Winter, as needed KierstenFACP Multi Complete Active Capsules daily Unknown 000 Ginseng Active Capsules 50mg 1 by Unknown 000 mouth every day Ibuprofen Active Tablets 200mg as needed Unknown 000 Sertraline HCL Hx Tablets 50mg 30tabs 1 Tab F32.8 Tyshawn 016 - Oral [place], Daily MDonna 016 Immunizations Description No Information Available Vital Signs Date Vital Result Comment 06/24/2018 10:39am Height 69 inches 5'9" Weight [...] Date Facility Test Result H/L Range Note Order 06/24/2018 [facility] In-House EKG <pending> CBC Auto Diff 08/18/2017 [facility] White Blood 7.4 10^3/uL N 3.5-10.[address] [place] [address] [phone] Red Blood Count 5.35 10^6/uL N 4.0-5.4 [...] Blood Cells % 0 Laboratory test 08/18/2017 [facility] TSH (Thyroid 1.01 mcIU/mL N 0.34-5.[address] Stim Horm) [place] [address] [phone] Comp Metabolic 08/18/2017 [facility] Sodium 139 mmol/L N 139- [address] [place] [address] [phone] Potassium 4.4 mmol/L N 3.5-5.0 Chloride 102 [...] Egfr Non- 91.3 >60 Egfr 117.4 >60 1 Lipid Profile 12/13/2016 [facility] Triglycerides 101 mg/dL N 2 (Trig/Chol/HDL) [address] [place] [address] [phone] Cholesterol 163 mg/dL N 3 HDL Cholesterol 46.9 mg/dL N 4 LDL Cholesterol 96 mg/dL N 5 Laboratory test 12/13/2016 [facility] Glucose 101 mg/dL High 70-100 [address] [place] [address] [phone] Laboratory test 07/13/2015 [facility] House Hemoglobin A1c 5.2 5-7 finding Laboratory test 06/13/2015 [facility] C Difficile SEE RESULT [address] [place] [address] [phone] CBC Auto Diff 06/08/2015 [facility] White Blood 7.3 N 3.5- 10.[address] Count 10^3/[place] [address] [phone] Red Blood Count 5.44 10^6/uL High 4.0-5.4 [...] Nucleated Red Blood Cells % 0.1 N Comp Metabolic Panel 06/08/2015 [facility] Sodium 136 mmol/L N 133-[address] [place] [id number] [phone] Potassium 4.1 mmol/L N 3.5-5.0 Chloride 102 [...] 94.8 N >60 Egfr 121.9 N >60 8 Laboratory test 06/08/2015 [facility] TSH (Thyroid 1.11 ?IU/mL N 0.34-5.[address] Stim Horm) [place] [address] [phone] 1 Because ethnic data is not always [...] 5 Kidney failure <15 (or dialysis) 2 Desirable <150 Borderline high 150-199 High 200-499 Very High >500 3 Desirable <200 Borderline high 200-239 High >239 4 Low <40 Desirable: 40-60 High: >60 5 Desirable: <100 mg/dL Near Optimal: 100-129 mg/dL Borderline High: 130-159 mg/dL High: 160-189 mg/dL Very High: >189 mg/dL 6 FASTING 10 HOUR 7 SEE RESULT BELOW Name: ALLYSON MENDEZ : [address]: Perry Carrero NP Acct: [id number] Unit: [id number] AGE: 29 Location: [facility] Re06/13/15 SEX: M Status: REG REF SPEC: [id number] ALEJANDRA: 06/13/15-[address]: Perry Carrero [employer] WORKER APPRENTICE REQ: [id number] RECD: 06/14/15 STATUS: COMP _ SOURCE: STOOL SPDESC: ORDERED: C. diff PCR, Stool Culture, O P: Giar/Crypt COMMENTS: C. Difficile toxin testing is not performed on formed stool specimens. Test of cure on positive patients is not recommended. Verbal to WADE SIMMONS by [id number] at 1328 on 06/14/15. Results read back [...] performed at Main Lab DEPARTMENT OF PATHOLOGY, [address] [place] [address] Addison Parikh M.D. Director [facility] # [id number] Patient: ALLYSON MENDEZ [id number] (Continued) Specimen: [id number] Collected: 06/13/15 Received: 06/14/15-1058 (Continued) Procedure Result Reported Site Shiga Toxin [...] is requested. Contact the Microbiology Department at [phone]. TEST LIMITATIONS: As with all diagnostic procedures, [...] not recommended. * ML - MAIN LAB ([facility]) . END OF REPORT * ML=Testing performed at Main Lab DEPARTMENT OF PATHOLOGY, [address] [place] [address] Addison Parikh M.D. Director [facility] # [id number] Because ethnic data is not always readily [...] (or dialysis) Procedures Date Code Description Status 06/24/2018 66152 EKG Tracing & Interpretation Completed 08/21/2017 89527 Anoscopy Completed 06/13/2015 87208 EKG Tracing & Interpretation Completed Encounters Type Date Location Provider Dx Diagnosis Office Visit 08/21/2017 Surgical Kalyan Szymanski K60.2 Anal fissure, 2:15p [facility] MD Marisol unspecified Office Visit 08/18/2017 [facility] Internal Mick Ortega R63.4 Abnormal weight 3:40p Joann Winter M.D.,FACP loss [place] K64.1 Second degree hemorrhoids Office Visit 12/10/2016 4:00p [facility] Internal Perry Carrero, Z13.220 Encounter for Medicine - [employer] WORKER APPRENTICE screening for [place] lipoid disorders Z13.1 Encounter for screening for diabetes mellitus F17.210 Nicotine dependence, cigarettes, uncomplicated Office Visit 11/23/2015 8:00a [facility] Internal Tyshawn M25.569 Pain in Joann Izquierdo M.D. unspecified knee Monik F32.8 Other depressive episodes K52.9 Noninfective gastroenteritis and colitis, unspecified Office Visit 08/17/2015 8:40a [facility] Internal Tyshawn F32.8 Other depressive Joann Izquierdo M.D. episodes [place] M25.569 Pain in unspecified knee Office Visit 07/13/2015 [facility] Internal Tyshawn K92.2 Gastrointestinal 8:00a Joann Izquierdo M.D. hemorrhage, [place] unspecified F32.8 Other depressive episodes M25.569 Pain in unspecified knee L83 Acanthosis nigricans Office Visit 06/13/2015 10:20a [facility] Internal Perry Carrero NP R42 Dizziness and Medicine - ginger [place] R19.7 Diarrhea, unspecified R07.89 Other chest pain R06.02 Shortness of breath Office Visit 06/08/2015 11:00a [facility] Internal Tyshawn Izquierdo, R42 Dizziness and Medicine - Kiersten Ruggiero K62.5 Hemorrhage of anus and rectum F17.210 Nicotine dependence, cigarettes, uncomplicated Plan of Treatment 06/24/2018 - Diane Olivia, N.P.M25.522 Pain in left elbowNew Therapy:Physical TherapyComments:For your elbow pain:I have referred you for physical therapy.You may find taking Naproxen (Aleve) helpful, 1 twice daily. Resting your left arm will also help. If this does not gradually improve, please contact the office.R06.02 Shortness of breathComments:To further evaluate your shortness of breath I have ordered a series of blood tests and a chest Xray. I will contact you with your results.R07.89 Other chest pain
[2018-07-16 07:45] VITALS: BP 128/91
--- NOTE | 2018-07-16 08:15 | UC ---
Nausea/Vomiting/Diarrhea HPI - HPI Summary HPI Summary: ONSET YESTERDAY OF CRAMPY ABD PAIN, NAUSEA, VOMITING, HEAVING AND WATERY STOOLS. HAS CHILLS BUT NO DOCUMENTED FEVER. WORKS AT A [employer]. NO COUGH OR CONGESTION. - History of Current Complaint Chief Complaint: UCGeneralIllness Stated Complaint: VOMITING / DIARRHEA Time Seen by Provider: 07/16/18 07:58 Hx Obtained From: Patient Onset/Duration: Sudden Onset, Lasting Days, Still Present Severity Initially: Moderate Severity Currently: Moderate Pain Intensity: 4 Pain Scale Used: 0-10 Numeric Location: Diffuse Character: Cramping Aggravating Factor(s): Nothing Alleviating Factor(s): Nothing Nausea/Vomiting Presence: Nauseated, Vomiting Nausea/Vomiting Duration: 24-36 hours Vomiting Characteristics: Retching, Nonbilious Diarrhea Presence: Yes Diarrhea Duration: 24-36 hours Diarrhea Characteristics: Watery - Allergies/Home Medications Allergies/Adverse Reactions: Allergies Allergy/AdvReac Type Severity Reaction Status Date / Time No Known Allergies Allergy Verified 07/16/18 07:47 Home Medications: Home Medications Ranitidine TAB (NF) [Zantac TAB (NF)] 150 mg PO BID 07/16/18 [History Confirmed 07/16/18] PMH/Surg Hx/FS Hx/Imm Hx GI/ History: Gastroesophageal Reflux - Surgical History Surgical History: Yes Surgery Procedure, Year, and Place: Hernia repair bilateral at approx 8 years old - Family History Known Family History: Positive: Hypertension, Diabetes - Social History Alcohol Use: Occasionally Substance Use Type: Marijuana Smoking Status (MU): Heavy Every Day Tobacco Smoker Type: Cigarettes Amount Used/How Often: 1 ppd Length of Time of Smoking/Using Tobacco: 10+ years Review of Systems All Other Systems Reviewed And Are Negative: Yes Constitutional: Positive: Fatigue Respiratory: Positive: Negative Cardiovascular: Positive: Negative Gastrointestinal: Positive: Abdominal Pain, Vomiting, Diarrhea, Nausea Genitourinary: Positive: Negative Musculoskeletal: Positive: Myalgia Physical Exam Triage Information Reviewed: Yes Appearance: Well-Appearing, No Pain Distress, Well-Nourished Vital Signs: Initial Vital Signs Temp 99.1 F 07/16/18 07:37 Pulse 102 07/16/18 07:37 Resp 18 07/16/18 07:37 BP 128/91 07/16/18 07:37 Pulse Ox 97 07/16/18 07:37 Vital Signs Reviewed: Yes Eyes: Positive: Conjunctiva Clear ENT: Positive: Hearing grossly normal, Pharynx normal, TMs normal Neck: Positive: Supple, Nontender, No Lymphadenopathy Respiratory Exam: Normal Cardiovascular Exam: Normal Abdomen Description: Positive: Soft, Other: - MINIMALLY TENDER DIFFUSELY. NO REBOUND OR RIGIDITY. Negative: CVA Tenderness (R), CVA Tenderness (L), Distended, Guarding Bowel Sounds: Positive: Present Musculoskeletal: Positive: No Edema Neurological: Positive: Alert Psychological: Positive: Age Appropriate Behavior Skin: Negative: Rashes Naus/Vom/Diarrhea Course/Dx - Differential Dx/Diagnosis Provider Diagnosis: Acute gastroenteritis Condition At Discharge: Stable Discharge - Sign-Out/Discharge Documenting (check all that apply): Patient Departure All imaging exams completed and their final reports reviewed: No Studies - Discharge Plan Condition: Stable Disposition: HOME Prescriptions: Ondansetron ODT TAB* [Zofran Odt TAB*] 4 mg PO Q6H PRN #20 tab.odt PRN Reason: Nausea/Vomiting Patient Education Materials: Gastroenteritis (ED) Forms: *Work Release Referrals: Perry Carrero HOTEL SERVICE MANAGER [Primary Care Provider] - If Needed Additional Instructions: GASTROENTERITIS: You have gastroenteritis ("intestinal flu"). This disease is usually caused by a virus. There is no specific treatment. The disease will end by itself. For now, the main danger is dehydration. Give clear liquids. Examples include Pedialyte, Gatorade, clear broth, juices, flat sodas, and jello water. Medications may be prescribed by the physician for special cases. Once tolerated, the clear liquid diet may be supplemented with rice, cereal, toast, applesauce, or bananas. GO TO THE [facility] WITHOUT FAIL if vomiting increases or blood appears in the bowel movement or vomitus; if you fail to improve, or if signs of dehydration occur (tongue and mouth become dry, lethargy). ENSURE ADEQUATE HYDRATION. CLEAR LIQUIDS, BLAND DIET. AVOID CAFFEINE, DAIRY, GREASY, SPICY FOODS. ONCE YOU ARE TOLERATING CLEAR LIQUIDS YOU CAN ADVANCE TO SIMPLE, BLAND FOODS. - Billing Disposition and Condition Condition: STABLE Disposition: Home
== END 2018-07-16 08:12 | disposition home or self-care (01) ==
LOC: UCEAST 07:31
DX: K52.9 Noninfective gastroenteritis and colitis, unspecified (principal); F17.210 Nicotine dependence, cigarettes, uncomplicated; K21.9 Gastro-esophageal reflux disease without esophagitis; Z79.899 Other long term (current) drug therapy
CPT/HCPCS: 99212; G0463

== ENCOUNTER 2018-09-02 17:24 | Emergency (ER) | payer OTHER ==
[2018-09-02 17:47] VITALS: BP 126/90
--- NOTE | 2018-09-02 18:11 | UC ---
Syncope/New Syncope HPI - HPI Summary HPI Summary: Mr. Cabral was being examined by the chiropractor when he fainted. He has a sore spot in his right elbow and the chiropractor had just pushed on it. He began to feel lightheaded and nauseated and a little flushed. And then he found himself on the floor. He feels fine now and back to normal. - History Of Current Complaint Chief Complaint: UCGeneralIllness Stated Complaint: PASSED OUT Time Seen by Provider: 09/02/18 17:43 Hx Obtained From: Patient Onset/Duration: Sudden Onset Timing: Seconds Frequency: Episodes x___ - 1 Context: Witnessed Associated Head Trauma: No Pain Intensity: 0 Aggravating Factor(s): Nothing Alleviating Factor(s): Nothing Associated Signs And Symptoms: Positive: Lightheadedness, Weakness - Allergies/Home Medications Allergies/Adverse Reactions: Allergies Allergy/AdvReac Type Severity Reaction Status Date / Time No Known Allergies Allergy Verified 09/02/18 17:48 PMH/Surg Hx/FS Hx/Imm Hx Previously Healthy: Yes - Surgical History Surgical History: Yes Surgery Procedure, Year, and Place: Hernia repair bilateral at approx 8 years old - Family History Known Family History: Positive: Hypertension, Diabetes - Social History Alcohol Use: Occasionally Substance Use Type: Marijuana Smoking Status (MU): Heavy Every Day Tobacco Smoker Type: Cigarettes Amount Used/How Often: 1 ppd Length of Time of Smoking/Using Tobacco: 10+ years Review of Systems All Other Systems Reviewed And Are Negative: Yes Physical Exam - Summary Physical Exam Summary: He is nontoxic in appearance with stable vitals. Triage Information Reviewed: Yes Vital Signs: Initial Vital Signs Temp 98 F 09/02/18 17:42 Pulse 81 09/02/18 17:42 Resp 17 09/02/18 17:42 BP 126/90 09/02/18 17:42 Pulse Ox 98 09/02/18 17:42 Vital Signs Reviewed: Yes ENT Exam: Normal Neck exam: Normal Respiratory Exam: Normal Cardiovascular Exam: Normal Cardiovascular: Positive: No Murmur, Pulses Normal, Brisk Capillary Refill Abdomen Description: Positive: Nontender Bowel Sounds: Positive: Present Musculoskeletal Exam: Normal, Other - Mildly tender lymph node in right antecubital fossa Neurological Exam: Normal Psychological Exam: Normal Skin Exam: Normal Syncope Course/Dx - Course Course Of Treatment: Mr. Mueller had what sounds like a vasovagal episode. He lost a lot of weight couple years ago and had a big workup by his PCP including a stress test. I cannot perform tests here in the urgent care. I did offer him an EKG. He feels back to normal and doesn't feel like he needs an EKG. I recommended follow-up with his PCP. - Differential Dx/Diagnosis Provider Diagnosis: Vasovagal episode, Lymphadenopathy Discharge - Sign-Out/Discharge Documenting (check all that apply): Patient Departure All imaging exams completed and their final reports reviewed: No Studies - Discharge Plan Condition: Stable Disposition: HOME Patient Education Materials: Syncope (ED), Lymphadenopathy (ED) Referrals: Perry Carrero NP [Primary Care Provider] - Additional Instructions: Your blood pressure was mildly elevated here today. I recommend following up with your PCP routinely to have that checked. - Billing Disposition and Condition Condition: STABLE Disposition: Home
== END 2018-09-02 18:32 | disposition home or self-care (01) ==
LOC: UCEAST 17:24
DX: R55 Syncope and collapse (principal); R59.1 Generalized enlarged lymph nodes; R11.0 Nausea; R53.1 Weakness; F17.210 Nicotine dependence, cigarettes, uncomplicated
CPT/HCPCS: 99211; G0463

== ENCOUNTER 2019-03-24 11:57 | Emergency (ER) | payer OTHER ==
[2019-03-24 12:10] VITALS: BP 137/83
--- NOTE | 2019-03-24 12:18 | UC ---
Back Pain HPI - HPI Summary HPI Summary: CHIEF COMPLAINT and HPI: This is a 33 -YEAR-OLD MAN WITH COMPLAINTS OF DIFFUSE MYALGIA. He specifically complains of bilateral low back pain as well as number of different pains sites including his right knee Note was made of a pulse of 105, temperature 100, but the patient denies recent illness. His pain is increased when he bends over and then arches his back He has no complaint of abdominal pain. He is a heavy smokerand occasionally drinks alcohol. He does have a history of shortness of breath and syncope but has no complaints of those 2 problems at this time. He did slip 2 weeks ago and injuring his right ankle. His current complaint. Began a few days ago and was worsened when he tried to fix the toilet yesterday. The pain is rated at 4/10 VITAL SIGNS & SaO2 REVIEWED. Within normal limits unless noted here. NURSES NOTE REVIEWED. "pt with right foot pain, now with back pain, movement making it worse. afebrile. He states he had been crawling in a small space and it got worse after that. pt with intermittant numbness/tingling in his feet." - History of Current Complaint Chief Complaint: UCBackPain Stated Complaint: BACK PAIN Time Seen by Provider: 03/24/19 12:14 Pain Intensity: 4 - Allergies/Home Medications Allergies/Adverse Reactions: Allergies Allergy/AdvReac Type Severity Reaction Status Date / Time No Known Allergies Allergy Verified 03/24/19 12:10 PMH/Surg Hx/FS Hx/Imm Hx - Additional Past Medical History Additional PMH: PAST MEDICAL HISTORY- CHRONIC and RECURRENT HEALTH PROBLEM LIST REVIEWED. Information relevant to present complaint: Myalgia, back strain, right ankle injury. VISIT HISTORY REVIEWED. MEDICATIONS & ALLERGIES REVIEWED. HYPERTENSION STATUS:o medication for hypertension. FAMILY HISTORY: Positive for: hypertension. SOCIAL HISTORY: Smoker:heavy smoker. Home:lives with his family Employment:does maintenance work. - Surgical History Surgical History: Yes Surgery Procedure, Year, and Place: Hernia repair bilateral at approx 8 years old - Family History Known Family History: Positive: Hypertension, Diabetes - Social History Alcohol Use: Occasionally Substance Use Type: Marijuana Smoking Status (MU): Heavy Every Day Tobacco Smoker Type: Cigarettes Amount Used/How Often: 1 ppd Length of Time of Smoking/Using Tobacco: 10+ years Household Exposure Type: Cigarettes Review of Systems All Other Systems Reviewed And Are Negative: Yes Skin: Positive: Negative Respiratory: Positive: Negative Cardiovascular: Positive: Negative Gastrointestinal: Positive: Negative Neurovascular: Positive: Negative Musculoskeletal: Positive: Arthralgia, Myalgia - diffuse, transient. Neurological: Positive: Numbness - intermittentright lower extremity. Psychological: Positive: Negative Is Patient Immunocompromised?: No Physical Exam - Summary Physical Exam Summary: Appearance: The patient is well-appearing, is in no pain or distress, and is well-nourished. Eyes: Conjunctiva are clear. Pupils are equal and reactive to light and accommodation. Extra ocular muscle movement is intact. ENT: The hearing is grossly normal, the pharynx is normal, and the TMs are normal. There is no muffled or hoarse voice. No stridor. Neck: The neck is supple and there is no lymphadenopathy. Respiratory: The chest is non-tender to palpation and without crepitus. The lungs are clear, there are normal breath sounds, and there is no respiratory distress. No wheezes, rales or rhonchi. Cardiovascular: Heart sounds reveal a regular rate and rhythm. There are no clicks, rubs or murmurs. There are no carotid bruits or thrills. Circulation is grossly intact. pulses are intact and within normal limits. Abdomen: The abdomen is soft and nontender. There is no organomegaly. Bowel sounds are present and within normal limits. No point tenderness at McBurneys point. No CVA tenderness. no abdominal pain on palpation no pulsatile mass appreciated. Musculoskeletal: Strength is intact. The patient moves all extremities. pain with extension along the muscles in the low back and on either side of the spine. Neurological: The patient is alert. Motor and sensory are examination grossly intact. Speech is normal. Psychological: The patient displays age appropriate behavior, and is conversant. GCS=15. Skin: Negative for rashes. Triage Information Reviewed: Yes Vital Signs: Initial Vital Signs Temp 100 F 03/24/19 12:04 Pulse 105 03/24/19 12:04 Resp 18 03/24/19 12:04 BP 137/83 03/24/19 12:04 Pulse Ox 96 03/24/19 12:04 Back Pain Course/Dx - Course Course Of Treatment: This is a 33 -YEAR-OLD MAN WITH COMPLAINTS OF DIFFUSE MYALGIA. He specifically complains of bilateral low back pain as well as number of different pains sites including his right knee Note was made of a pulse of 105 , temperature 100, but the patient denies recent illness. His pain is increased when he bends over and then arches his back He has no complaint of abdominal pain. He is a heavy smokerand occasionally drinks alcohol. He does have a history of shortness of breath and syncope but has no complaints of those 2 problems at this time. He did slip 2 weeks ago and injuring his right ankle. His current complaint. Began a few days ago and was worsened when he tried to fix the toilet yesterday. The pain is rated at 4/10 Physical examination is consistent with low back muscle strain. I discussed this condition with the patient. He will take 2 days of rest from his work and use warm moist heat in the morningand ice after physical exertion. - Differential Dx/Diagnosis Differential Diagnosis/HQI/PQRI: Herniated Disc, Osteomyelitis, Strain, Sprain Provider Diagnosis: Low back strain Discharge ED - Sign-Out/Discharge Documenting (check all that apply): Patient Departure All imaging exams completed and their final reports reviewed: No Studies - Discharge Plan Condition: Stable Disposition: HOME Patient Education Materials: Low Back Strain (ED), Lower Back Exercises (ED) Forms: *Work Release Referrals: Perry Carrero NP [Primary Care Provider] - Additional Instructions: WE DISCUSSED: PLEASE SEEK CARE AT THE EMERGENCY DEPARTMENT IF SYMPTOMS WORSEN OR IF NEW SYMPTOMS DEVELOP. FOLLOW UP WITH YOUR PRIMARY CARE PHYSICIAN IF CONDITION CONTINUES BEYOND 3 DAYS WITHOUT IMPROVEMENT. YOUR DIAGNOSIS IS: low back strain YOUR PRESCRIPTION RECOMMENDATION IS: none BLOOD PRESSURE: Your blood pressure was slightly elevated today; recheck with your caregiver or elsewhere to recheck your blood pressure over the next month. FOR PAIN AND/OR SLEEP: For pain: Ibuprofen (Motrin and other brand names) 400-600mg PLUS acetaminophen (Tylenol and other brand names) 500mg - 1000mg every 8 hours. WORK NOTE: given; no work until March 28, 2019. - Billing Disposition and Condition Condition: STABLE Disposition: Home
--- OUTSIDE RECORDS SUMMARY | 2019-03-24 14:30 | XMS REPORT | Continuity of Care Document ---
:1985 Author Organization [facility] Care Team Providers Name Role Phone VERA CASTILLO Admitting Physician VERA CASTILLO Attending Physician Allergies and Intolerances No Allergy Data in the System Medications RxNorm Medication Dose Route Instructions Start Date End Date Status Multivitamins 1 cap oral orally every morning Active Ginseng 400 mg oral orally daily Completed Medications At Time Of Discharge RxNorm Medication Dose Route Instructions Start Date End Date Status Multivitamins 1 cap oral orally every morning Active Problems No Data in the system Procedures Code Code System Procedure Date [id number] SNOMED CT Hernia repair U Results No data in the system Social History Code Code System Social History Description Dates Observed Observation 406132282 SNOMED CT Current Smoking Current every day Status smoker UNK AdministrativeGender Sex Assigned At Unknown Vital Signs Code Code System Vitals Value Date 8310-5 [facility] Body Temperature 99.2 [degF] 02/03/2019 8865-8 [facility] Pulse Rate 97 {beats}/min 02/03/2019 9279-1 [facility] Respiratory Rate 20 /min 02/03/2019 8480-6 [facility] BP Systolic 126 mm[Hg] 02/03/2019 8462-4 [facility] BP Diastolic 88 mm[Hg] 02/03/2019 8302-2 [facility] Height 69 [in_i] 02/03/2019 70316-4 [facility] Weight 90.9 kg 02/03/2019 3140-1 [facility] Body surface area Derived from formula 2.07 m2 02/03/2019 99269-2 [facility] BMI (Body Mass Index) 29.6 kg/m2 02/03/2019 Goals Section No data in the system Health Concerns No data in the systemEncounter Diagnosis Date Code Code System Diagnosis Status R51 ICD10 HEADACHE Active Advance Directives [place] NO ADVANCE DIRECTIVES Directive Type Effective Date [employer] Notes Supporting Document Name Address Phone No Directive Type 03/19/2017 8:52:00 Not Specified Not Specified Not Specified None No specified AM *RHIO - CONSENT IS YES Directive Type Effective Date [employer] Notes Supporting Document Name Address Phone No Directive Type 05/31/2011 5:50:22 Not Specified Not Specified Not Specified None No specified PM Encounters Encounter Diagnosis Location Date HEADACHE [facility] 02/03/2019 Family History Family history not obtained Functional Status Code Functional Condition Code System Date Status Independent adls SNOMED CT 02/03/2019 Active Appears well nourished/hydrated SNOMED CT 02/03/2019 Active Immunizations Vaccine Code Code System Vaccine Name Date Status 115 CVX tetanus toxoid, reduced diphtheria 12/13/2015 Completed toxoid, and acellular pertussis vaccine, adsorbed 115 CVX tetanus toxoid, reduced diphtheria 03/19/2017 Completed toxoid, and acellular pertussis vaccine, adsorbed Medical Equipment No data in the system Mental Status Code Cognitive Condition Code System Date Status Other SNOMED CT 02/03/[address] 02/03/2019 Active Oriented x [address] 02/03/2019 Active Moves all extremities SNOMED CT 02/03/2019 Active Nml gait SNOMED CT 02/03/2019 Active Speech normal SNOMED CT 02/03/2019 Active Responds appropriately SNOMED CT 02/03/[address] 02/03/2019 Active Mild distress SNOMED CT 02/03/[address] 02/03/2019 Active Assessment and Plan Assessments No data in the systemPlan Of Treatment No data in the systemPending Tests No data in the system Hospital Discharge Instructions No data in the system Reason for Visit Reason for Visit Headache
== END 2019-03-24 13:15 | disposition home or self-care (01) ==
LOC: UCEAST 11:57
DX: S39.012A Strain of muscle, fascia and tendon of lower back, initial encounter (principal); F17.210 Nicotine dependence, cigarettes, uncomplicated; X58.XXXA Exposure to other specified factors, initial encounter; Y92.9 Unspecified place or not applicable
CPT/HCPCS: 99211; G0463